=== PATIENT | male | born 1985 | race Hispanic/Latino ===

== ENCOUNTER → 2022-05-24 | Outpatient (CLI) | payer OTHER ==
[2022-05-24 12:24] LABS: BASOPHILS % (AUTO) 0.6 % (0.0-5.0); EOSINOPHILS % (AUTO) 1.9 % (0.0-8.0); LYMPHOCYTES % (AUTO) 31.3 % (21.0-51.0); MEAN CORPUSCULAR HEMOGLOBIN 27.6 pg (27.0-33.0); MEAN CORPUSCULAR HGB CONC 33.7 g/dL (32.0-36.0); NEUTROPHILS % (AUTO) 57.7 % (40.0-77.0); PLATELET COUNT (AUTO) 271 K/uL (130-400); RED BLOOD CELL COUNT(AUTO) 6.34 MIL/uL (4.50-6.20); RED CELL DISTRIBUTION WIDTH 14.6 % (11.0-15.5); WHITE BLOOD COUNT (AUTO) 6.2 K/uL (4.8-10.8)
[2022-05-24 12:37] LABS: HEMOGLOBIN A1C 5.6 % (4.0-6.0)
[2022-05-24 12:49] LABS: ALBUMIN 4.1 g/dL (3.5-5.0); CREATININE 1.2 mg/dL (0.5-1.5); MAGNESIUM 2.2 mg/dL (1.80-2.40); POTASSIUM 4.2 mmol/L (3.5-5.1); THYROID STIMULATING HORMONE 1.92 uIU/mL (0.36-3.74); TOTAL PROTEIN, SERUM 7.7 g/dL (6.0-8.3)
== END | disposition home or self-care (01) ==
LOC: LAB 09:04
PROVIDERS: ATTEND Student in an Organized Health Care Education/Training Program
DX: R00.2 Palpitations (principal)
CPT/HCPCS: 36415; 80053; 80061; 83036; 83735; 84443; 85025

== ENCOUNTER → 2022-06-06 | Outpatient (CLI) | payer OTHER | END | disposition home or self-care (01) | LOC: SHCH 11:05 | PROVIDERS: ATTEND Student in an Organized Health Care Education/Training Program | DX: R00.2 Palpitations (principal); I10 Essential (primary) hypertension; R56.9 Unspecified convulsions | CPT/HCPCS: 93306 ==

== ENCOUNTER 2024-08-04 20:16 | Emergency (ER) | payer OTHER ==
[~2024-08-04] VITALS: Ht 167.6 cm; Wt 122.5 kg
[2024-08-04 20:30] VITALS: TEMP 99
[2024-08-04] MEDS ORDERED: METO25TA6 PO (20:39)
[2024-08-04] MEDS ORDERED: SPIR1TAB4 PO (20:39)
[2024-08-04] MEDS ORDERED: AMLO-257 PO (20:39)
[2024-08-04] MEDS ORDERED: ASPI-1005 PO (20:39)
[2024-08-04] MEDS ORDERED: LAMO25TA9 PO (20:39)
--- NOTE | 2024-08-04 20:52 | ERN ---
ED Note History of Present Illness Stated Complaint: C/O POSSIBLE SEIZURE Chief Complaint: Seizure Time Seen by MD: 20:45 Dictation: HPI: 39-year-old male past medical history of hypertension, seizure disorder, cholecystectomy presented to ED with complaints of seizure-like movement 2 hours back. Patient was walking when he developed jerking movement of his neck on right side which lasted for few minutes. As per the bystander , there was a brief moment of ?apnea vs LOC . He states that he had posterior headache and loss of balance at that time. No associated fall, head trauma, fever, nausea, projectile vomiting, vision changes reported. As per the mother patient had the last seizure episode 2 years back and he is compliant with his seizure medications, lamotrigine 50 mg b.i.d.. Patient denies any stressors, noncompliance to medications, smoking, alcoholism or any other recreational drug abuse. He is in no acute cardiopulmonary distress Allergies: Coded Allergies: No Known Allergies (Unverified Allergy, Unknown, 08/04/24) Home Meds Reported Medications Spironolact/Hydrochlorothiazid (Spironolactone-Hctz 25-25 Tab) 25 Mg-25 Mg Tablet, 1 TAB PO DAILY for 30 Days, #30 TAB 0 Refills 08/04/24 Amlodipine Besylate (Amlodipine Besylate) 5 Mg Tablet, 5 MG PO BID, TAB 08/04/24 Aspirin (ASPIRIN 81MG CHEW TAB) 81 Mg Tab.chew, 1 TAB PO DAILY for 30 Days, #30 TAB 0 Refills 08/04/24 Metoprolol Tartrate (Metoprolol Tartrate) 25 Mg Tablet, 1 TAB PO BID for 30 Days, #60 TAB 0 Refills 08/04/24 Lamotrigine (Lamotrigine) 25 Mg Tablet, 2 TAB PO BID for 30 Days, #60 TAB 0 Refills 08/04/24 Past Medical History Past Medical History: Hypertension, Seizure Surgical History: Cholecystectomy Review of System Dictation REVIEW OF SYSTEMS CONSTITUTIONAL: Denies fevers, chills, or night sweats. No unintentional weight loss reported. ENT: No hearing loss, otalgia, otorrhea, rhinitis, rhinorrhea, hoarseness, or sore throat. CARDIOVASCULAR: Denies any exertional angina, dyspnea on exertion, orthopnea, paroxysmal nocturnal dyspnea, palpitations claudication. PULMONARY: Denies any shortness of breath, cough, phlegm / sputum, hemoptysis, pleuritic chest pain. SLEEP: Denies morning headaches, daytime somnolence or napping. Denies difficulty falling asleep, staying asleep, waking from sleep. Denies knowledge of snoring. GASTROINTESTINAL: Denies any type of dysphagia to either liquids or solids. Denies nausea, vomiting, abdominal pain, diarrhea, constipation, blood in stools . NEUROLOGICAL: Denies headache, motor weakness, sensory deficit, vertigo / spinning sensation, gait abnormalities, or tremors. GENITOURINARY: Denies frequency, urgency, nocturia, hematuria or incontinence, low urinary stream, straining to void, urinary intermittency or hesitancy ENDOCRINOLOGY: Denies polyuria, polydipsia, polyphagia or heat / cold intolerance. HEMATOLOGY: Denies thrombophilia / previous clots, or coagulopathy / bleeding disorders. ONCOLOGIC: Denies personal history of malignancy. DERMATOLOGIC: Denies rashes or pruritus. PSYCHIATRIC: Denies any suicidal or homicidal ideation. Denies hallucinations. Initial Vital Sign VS Vital Signs Date Time Temp Pulse Resp B/P (MAP) Pulse Ox O2 Delivery O2 Flow Rate FiO2 08/04/24 20:22 97.7 97 20 141/100 100 Room Air 08/04/24 20:30 0 21 Physical Exam Dictation PHYSICAL EXAM GENERAL APPEARANCE: Morbidly obese male . Awake and alert. Oriented to time, place and person. No acute cardiopulmonary distress. HEENT: Head normocephalic , atraumatic. Sclera anicteric . Pupils are round and reactive. Extraocular movements intact . No conjunctival injection. No nasal congestion. No throat congestion .Oral mucosa moist. NECK: Supple. No JVD. No thyromegaly. No submental, submandibular, pre- /postauricular, occipital or supraclavicular lymphadenopathy. No carotid bruits. CHEST: Normal chest expansion. No Telemetry. LUNGS: Clear to auscultation bilaterally . No rales, rhonchi or any wheezing. Equal tactile fremitus. Resonant to percussion . CARDIOVASCULAR: Regular rate and rhythm. S1 and S2 normal. No rubs, murmurs or gallops. ABDOMEN: Soft, nontender, and nondistended. There is no rebound tenderness, voluntary guarding, or rigidity. No hepatosplenomegaly. Bowel sounds normal in all four quadrants . NEUROLOGICAL: Cranial nerves II-XII grossly intact. Motor is 5/5 in bilateral upper and lower extremities . No sensory deficits. EXTREMITIES: No edema, No cyanosis , No clubbing. Good capillary refill. SKIN: No skin breakdown. No rashes or lesions . PSYCHIATRY: Normal affect .No auditory or visual hallucinations. Normal speech. No dysarthria. Results (Laboratory/Radiology) Laboratory/Radiology Laboratory Tests Test 08/04/24 20:35 08/04/24 21:33 08/04/24 21:59 08/04/24 23:18 Prothrombin Time 10.9 SEC (9.6-11.6) Prothromb Time International Ratio 1.01 (0.85-1.15) Activated Partial Thromboplast Time 24.2 SEC (26.3-35.5) L Sodium Level 134 mmol/L (136-145) L Potassium Level 3.3 mmol/L (3.5-5.1) L Chloride Level 97 mmol/L (101-111) L Carbon Dioxide Level 28 mmol/L (21-32) Blood Urea Nitrogen 13 mg/dL (7-18) Creatinine 1.1 mg/dL (0.5-1.3) Glomerular Filtration Rate Calc 86 mL/min (>90) Random Glucose 113 mg/dL (70-105) H Total Calcium 9.3 mg/dL (8.5-10.1) Total Creatine Kinase 348 U/L (21-232) H White Blood Count 13.7 K/uL (4.8-10.8) H Red Blood Count 5.79 MIL/uL (4.50-6.20) Hemoglobin 16.5 g/dL (14.0-18.0) Hematocrit 47.5 % (42-54) Mean Corpuscular Volume 82.0 fL (79-99) Mean Corpuscular Hemoglobin 28.5 pg (27.0-33.0) Mean Corpuscular Hemoglobin Concent 34.7 g/dL (32.0-36.0) Red Cell Distribution Width 13.9 % (11.0-15.5) Platelet Count 266 K/uL (130-400) Mean Platelet Volume 8.6 fL (7.5-10.5) Immature Granulocyte % (Auto) 0.6 % (0-1) Neutrophils (%) (Auto) 81.5 % (40.0-77.0) H Lymphocytes (%) (Auto) 11.2 % (21.0-51.0) L Monocytes (%) (Auto) 6.3 % (3.0-13.0) Eosinophils (%) (Auto) 0.1 % (0.0-8.0) Basophils (%) (Auto) 0.3 % (0.0-5.0) Neutrophils # (Auto) 11.2 K/uL (1.8-7.7) H Lymphocytes # (Auto) 1.5 K/uL (1.0-4.8) Monocytes # (Auto) 0.9 K/uL (0.1-1.0) Eosinophils # (Auto) 0.02 K/uL (0.00-0.70) Basophils # (Auto) 0.04 K/uL (0.00-0.20) Absolute Immature Granulocyte (auto 0.08 K/uL (0-1) Nucleated Red Blood Cells 0.0 % (0.0-0.19) Troponin I High Sensitivity 12 ng/L (4-75) 15 ng/L (4-75) Urine Color COLORLESS (YELLOW) Urine Appearance CLEAR (CLEAR) Urine pH 6.0 (5.0-8.0) Urine Specific [place] 1.010 (1.001-1.031) Urine Protein NEGATIVE mg/dL (NEGATIVE) Urine Glucose (UA) NEGATIVE mg/dL (NEGATIVE) Urine Ketones NEGATIVE mg/dL (NEGATIVE) Urine Occult Blood NEGATIVE (NEGATIVE) Urine Nitrate NEGATIVE (NEGATIVE) Urine Bilirubin NEGATIVE mg/dL (NEGATIVE) Urine Urobilinogen 0.2 mg/dL (0.2-1.0) Urine Leukocyte Esterase NEGATIVE Jody/uL Urine Opiates Screen NEGATIVE (NEGATIVE) Urine Barbiturates Screen NEGATIVE (NEGATIVE) Urine Phencyclidine Screen NEGATIVE (NEGATIVE) Urine Amphetamines Screen NEGATIVE (NEGATIVE) Urine Benzodiazepines Screen NEGATIVE (NEGATIVE) Urine Cocaine Screen NEGATIVE (NEGATIVE) Urine Marijuana (THC) Screen NEGATIVE (NEGATIVE) EKG Comment: ECG, 08.04.24, 8:47 PM NORMAL SINUS RHYTHM VENTRICULAR RATE AT 88 BEATS PER MIN AK 159, QTc [address] ELEVATION ED Course ED Course Orders Procedure Category Date Status Time Basic Metabolic Panel LAB 08/04/24 Complete 20:31 Pt And Ptt LAB 08/04/24 Complete 20:31 Urinalysis Profile LAB 08/04/24 Complete 20:31 Drug Screen Urine LAB 08/04/24 Complete 20:31 Iv Insertion CPOE 08/04/24 Transmitted 20:31 12 Lead Ekg Tracing- EKG 08/04/24 Logged Technical 20:39 Troponin I High LAB 08/04/24 Complete Sensitivity 20:39 Creatine Kinase, Total LAB 08/04/24 Complete 20:39 Lamotrigine LAB 08/04/24 In Process (Lamictal) Level 20:39 Levetiracetam 500 PHA 08/04/24 Complete Mg/5 Ml Sd V (Keppra 5 21:00 Seizure Precautions CPOE 08/04/24 Transmitted 20:51 Ct Head/Brain W/O CT 08/04/24 Resulted Contrast 20:51 Cbc With Differential LAB 08/04/24 Complete 20:54 0.9%Nacl 1000ml (Ns PHA 08/04/24 In Process 1000ml) 22:00 Potassium Chloride PHA 08/04/24 Complete 20meq Er (K-Dur/Klor- 22:00 Troponin I High LAB 08/04/24 Complete Sensitivity 22:59 Nitroglycerin 1gm PHA 08/04/24 Complete Oint (Nitroglycerin 1g 23:00 Nicardipine 25mg Inj PHA 08/05/24 Complete (Cardene 25mg Inj) 00:00 [place] Prov. Neuro CONPHYSVC 08/04/24 Transmitted Consult 23:34 Current Medications Medications (Trade) Dose Ordered Sig/Cecilia Route PRN Reason Start Time Stop Time Status Last Admin Dose Admin Levetiracetam 1000 mg/Sodium Chloride 100 ml @ 400 mls/hr ONCE ONCE IV 08/04/24 21:00 08/04/24 21:14 DC 08/04/24 20:53 Nicardipine HCl 50 mg/Sodium Chloride 250 ml @ 0 mls/hr PROTOCOL ONCE IV 08/05/24 00:00 08/05/24 00:01 DC 08/05/24 00:11 Nitroglycerin (Nitroglycerin 1gm Oint) 1 inch ONCE ONCE TD 08/04/24 23:00 08/04/24 23:03 DC 08/04/24 23:10 Potassium Chloride (K-Dur/Klor-Con 20meq) 40 meq ONCE ONCE PO 08/04/24 22:00 08/04/24 22:01 DC 08/04/24 21:56 Sodium Chloride 1,000 ml @ 150 mls/hr Q6H40M ONCE IV 08/04/24 22:00 08/05/24 04:39 08/04/24 21:55 Vital Signs Date Time Temp Pulse Resp B/P (MAP) Pulse Ox O2 Delivery O2 Flow Rate FiO2 08/05/24 00:32 95 17 131/79 96 Room Air* 0 21 08/05/24 00:11 96 182/107 08/04/24 23:44 86 18 179/113 96 Room Air* 0 21 08/04/24 20:30 99.0 91 22 143/98 98 Room Air* 0 21 08/04/24 20:22 97.7 97 20 141/100 100 Room Air Medical Decision Making MDM Differential diagnosis : Breakthrough seizure, stroke Rationale: Tests considered and ordered secondary to shared decision making include: I will re-evaluate the patient after treatment and diagnostic exams have returned to determine whether they require further testing, can be safely discharged home, or need admission for further treatment and evaluation. Given the social determinants of health affecting care, including literacy, access to medical care, prescription drug management, and dgdm-dlt-jagvdwl drugs, I will ensure that treatment plans are tailored accordingly. There are no social concerns with this patient. Risk of complication and/or morbidity or mortality of patient management: None Need for hospitalization: Patient does not meet criteria for hospitalization. Need for emergency major/minor surgery: No Prescription drug management Prescriptions will include symptomatic care Medications-Per medication reconciliation Previous outside records reviewed: Old ER visits. Patient's prior external medical records from other ER visits were reviewed by me as indicated. Prior testing and results from previous visits were reviewed. Prior tests were taken into account with medical decision making and resource utilization, independent historian/historians were used to obtain complete medical history. I independently interpreted the test that were performed, results were reviewed by me and considered findings on radiology. Medical management and examination interpretation discussions was done by me with other qualified healthcare professionals as indicated for the patient's care. Revaluation: CT head showed no acute findings . Patient stated that he is experiencing generalized body pain and rt lower extremiry cramps. Labs showed wbc at 13k, mild hypokalemia and elevated CK. IV NS and potassium suppl ementation was given. 11 pm : He started complaining of chest pain,. His BP is elevated at 179/117 mm of Hg. Initial troponin was 12. Will repeat tropnin level\ 11:30 pm : Started on IV Cardene drip. Teleneurology consult placed . Disposition : Patient will be transferred to [facility] for Neurology evaluation Stroke Patient?: No Is Patient Candidate for t-PA?: No Did the Patient Receive t-PA?: No Contraindication for t-PA?: Medical Contraindication NIH STROKE SCALE: NIH STROKE SCALE Response (Comments) Value Level of Consciousness Alert 0 Ask patient month and their age Answers both correct 0 Command to open eyes, make fist and let go Obeys both correct 0 Best gaze (horizontal eye movement) Normal 0 Visual Field Testing No Visual Field Loss 0 Facial Paresis Normal / Symmetrical 0 Motor Function - Left Arm Normal 0 Motor Function - Right Arm Normal 0 Motor Function - Left Leg Some effort against grav. 2 Motor Function - Right Leg Some effort against grav. 2 Limb Ataxia No Ataxia 0 Sensory-pin prick to arms, legs, trunk and face Normal 0 Best Language (describe picture, name items and read) No Aphasia 0 Dysarthria (read several words) Normal Articulation 0 Extinction and Inattention Normal 0 Total 4 DX & DISP Disposition: Transfer Departure Impression: Primary Impression: Breakthrough seizure Condition: Stable Referrals: SELF,REFERRAL (PCP) AARON CUEVA MD Aug 04, 2024 20:52 SONG ROSE MD Aug 05, 2024 00:48
[2024-08-04] MEDS: leveTIRACEtam 500 MG/5 ML SD V 1,000 MG in 0.9%NACL 100ML 100 ML IV ONE (20:53)
[2024-08-04 20:54] LABS: CREATININE 1.1 mg/dL (0.5-1.3); POTASSIUM 3.3 mmol/L (3.5-5.1)
--- NOTE | 2024-08-04 20:57 | NUR ---
PATIENT TRANSPORTED TO CT
[2024-08-04 21:07] LABS: INR 1.01 (0.85-1.15); PROTHROMBIN TIME 10.9 SEC (9.6-11.6)
[2024-08-04 21:08] LABS: PARTIAL THROMBOPLASTIN TIME 24.2 SEC (26.3-35.5)
--- NOTE | 2024-08-04 21:35 | HMCIMG ---
CT HEAD/BRAIN W/O CONTRAST CLINICAL HISTORY: breakthrough seizure, posterior headache COMPARISON: None TECHNIQUE: Multiple sequential axial images of the head were obtained from the base of the skull through vertex. CT was performed with one or more of the following dose reduction techniques: automated exposure control, adjustment of the mA and/or kV according to patient size, or use of iterative reconstruction technique FINDINGS: There is mild atrophy and small vessel disease. The orbital contents, paranasal sinuses and mastoid air cells are within normal limits. The calvarium is intact. IMPRESSION: There are no acute findings.
[2024-08-04 21:39] LABS: BASOPHILS # (AUTO) 0.04 K/uL (0.00-0.20); BASOPHILS % (AUTO) 0.3 % (0.0-5.0); EOSINOPHILS # (AUTO) 0.02 K/uL (0.00-0.70); EOSINOPHILS % (AUTO) 0.1 % (0.0-8.0); HEMATOCRIT 47.5 % (42-54); IMMATURE GRANULOCYTE ABSOLUTE 0.08 K/uL (0-1); LYMPHOCYTES # (AUTO) 1.5 K/uL (1.0-4.8); LYMPHOCYTES % (AUTO) 11.2 % (21.0-51.0); MEAN CORPUSCULAR HEMOGLOBIN 28.5 pg (27.0-33.0); MEAN CORPUSCULAR HGB CONC 34.7 g/dL (32.0-36.0); MONOCYTES # (AUTO) 0.9 K/uL (0.1-1.0); MONOCYTES % (AUTO) 6.3 % (3.0-13.0); NEUTROPHILS # (AUTO) 11.2 K/uL (1.8-7.7); NEUTROPHILS % (AUTO) 81.5 % (40.0-77.0); PLATELET COUNT (AUTO) 266 K/uL (130-400); RED BLOOD CELL COUNT(AUTO) 5.79 MIL/uL (4.50-6.20); RED CELL DISTRIBUTION WIDTH 13.9 % (11.0-15.5); WHITE BLOOD COUNT (AUTO) 13.7 K/uL (4.8-10.8)
[2024-08-04] MEDS: 0.9%NACL 1000ML 1,000 ML IV ONE (21:55)
[2024-08-04] MEDS: PoTASSium chloRIDE 20MEQ ER 20 MEQ ERTAB PO ONE (21:56)
[2024-08-04 22:10] LABS: APPEARANCE,URINE CLEAR (CLEAR); BILIRUBIN,URINE NEGATIVE (NEGATIVE); COLOR,URINE COLORLESS (YELLOW); GLUCOSE, URINE (UA) NEGATIVE (NEGATIVE); KETONES,URINE NEGATIVE (NEGATIVE); LEUKOCYTE ESTERASE ,URINE NEGATIVE Leu/uL (NEGATIVE); NITRATE,URINE NEGATIVE (NEGATIVE); OCCULT BLOOD,URINE NEGATIVE (NEGATIVE); PROTEIN,URINE NEGATIVE (NEGATIVE); UROBILINOGEN,URINE 0.2 mg/dL (0.2-1.0)
[2024-08-04 22:15] LABS: ADD UA MICROSCOPIC NO; AMPHET/METH SCREEN,URINE NEGATIVE (NEGATIVE); BARBITURATE SCREEN, URINE NEGATIVE (NEGATIVE); BENZODIAZEPINES SCREEN,URINE NEGATIVE (NEGATIVE); CANNABINOID SCREEN,URINE NEGATIVE (NEGATIVE); COCAINE SCREEN,URINE NEGATIVE (NEGATIVE); OPIATE SCREEN,URINE NEGATIVE (NEGATIVE); PHENCYCLIDINE SCREEN,URINE NEGATIVE (NEGATIVE)
[2024-08-04] MEDS: NITROGLYCERIN 1GM OINT 1 INCH/1GM TD ONE (23:10)
[2024-08-05] MEDS: niCARDIpine 25MG INJ 50 MG in 0.9% NACL 250ML 230 ML IV ONE (00:11)
--- NOTE | 2024-08-05 00:23 | NUR ---
TRANSFER CALL PLACED TO [facility] TO INITIATE TRANSFER FOR NEUROLOGY SERVICES
[2024-08-05 01:09] VITALS: BP 123/78; PULSE 98; RESP 17; O2SAT 98
--- NOTE | 2024-08-05 01:10 | NUR ---
TRANSFER PT. WAS ACCEPTED BY PRASANTH HURLEY MD @ 0046 FOR TRANSFER TO [facility] [place]. ROOM ASSIGNMENT AT THIS TIME IS 1328. REPORT: [phone]
--- NOTE | 2024-08-05 01:33 | NUR ---
[facility] CALLED FOR TRANSPORT OF MONITORED NEURO ICU PT.
--- NOTE | 2024-08-05 02:09 | NUR ---
REPORT CALLED TO AMANDA LALA AT [facility]
--- NOTE | 2024-08-05 06:52 | EKG ---
[facility] Test Date: 2024-08-04 Test Time: 20:47:06 Pat Name: ERNIE GALAVIZ Department: [facility] Room: Gender: Domestic Travel Consultant: [id number] : 1985 Requested By: AARON CUEVA Order Number: [id number] Reading MD: Benson Pardo Measurements Intervals Hatch Rate: 88 P: 36 DE: 159 QRS: 46 QRSD: 81 T: 3 QT: 377 QTc: 456 Interpretive Statements Sinus rhythm No previous ECG available for comparison Electronically Signed On 08-06-2024 18:33:33 LUNG SPLITTER by Benson Pardo Please click the below link to view image of tracing.
== END 2024-08-05 02:20 | disposition short-term general hospital (02) ==
LOC: EDH 20:16
DX: G40.909 Epilepsy, unspecified, not intractable, without status epilepticus (principal); I10 Essential (primary) hypertension; Z79.82 Long term (current) use of aspirin; Z90.49 Acquired absence of other specified parts of digestive tract
CPT/HCPCS: 99285; 96374; 70450; 82550; 84484 ×2; 80048; 80305; 85025; 85610; 85730; 36415; 93005; 81003; 82542; 96375; J1953; J7030; J3490; J7050

== ENCOUNTER 2024-10-26 14:23 | Emergency (ER) | payer OTHER ==
[~2024-10-26] VITALS: Ht 167.6 cm; Wt 126.6 kg
[~2024-10-26 14:23] MED LIST: AMLO-257 PO; ASPI-1005 PO; LAMO25TA9 PO; METO25TA6 PO; SPIR1TAB4 PO
--- NOTE | 2024-10-26 15:16 | ERN ---
ED Note History of Present Illness Stated Complaint: LEFT THUMB LACERATION Chief Complaint: Laceration/Avulsion Time Seen by MD: 14:25 Dictation: 39-year-old male presents to the ED for evaluation of left thumb laceration onset RN HOME CARE. Patient reports he accidentally hit his thumb with a hammer, but denies any other associated symptoms at this time. Allergies: Coded Allergies: No Known Allergies (Unverified Allergy, Unknown, 08/04/24) Home Meds Active Scripts Cephalexin Monohydrate (Keflex) 500 Mg Cap, 500 MG PO BID for 7 Days, #14 CAP Prov:TENISHA BANERJEE MD 10/26/24 Reported Medications Spironolact/Hydrochlorothiazid (Spironolactone-Hctz 25-25 Tab) 25 Mg-25 Mg Tablet, 1 TAB PO DAILY for 30 Days, #30 TAB 0 Refills 08/04/24 Amlodipine Besylate (Amlodipine Besylate) 5 Mg Tablet, 5 MG PO BID, TAB 08/04/24 Aspirin (ASPIRIN 81MG CHEW TAB) 81 Mg Tab.chew, 1 TAB PO DAILY for 30 Days, #30 TAB 0 Refills 08/04/24 Metoprolol Tartrate (Metoprolol Tartrate) 25 Mg Tablet, 1 TAB PO BID for 30 Days, #60 TAB 0 Refills 08/04/24 Lamotrigine (Lamotrigine) 25 Mg Tablet, 2 TAB PO BID for 30 Days, #60 TAB 0 Refills 08/04/24 Past Medical History Past Medical History: Hypertension, Seizure Surgical History: Cholecystectomy Review of System Dictation Constitutional: Negative for fever,chills, and weight loss Eyes: Negative for injury, pain,redness, and discharge ENT: Negative for injury,pain or swelling Cardiovascular: Negative for chest pain, palpitations, and edema Respiratory: Negative for shortness of breath, cough, and wheezing, Abdomen/GI: Negative for abdominal pain, nausea, vomiting, diarrhea, and constipation Back: Negative for injury and pain : Negative for injury, bleeding and discharge MS/Extremity: Positive for finger injury Negative for deformity Skin: Negative for rash, and discoloration Neuro: Negative for headache, weakness, numbness, tingling, and seizure Psych: Negative for suicide ideation, homicidal ideation, and hallucinations Initial Vital Sign VS Vital Signs Date Time Temp Pulse Resp B/P (MAP) Pulse Ox O2 Delivery O2 Flow Rate FiO2 10/26/24 14:27 98.4 80 16 146/103 97 Room Air 0 10/26/24 16:55 21 Physical Exam Dictation General: awake, alert, NAD Head/Face: Normocephalic, atraumatic Eyes: PERRL, EOMI, vision at baseline ENT: oral cavity clear, TMs clear, no signs of infection Neck: Trachea midline, supple, no nuchal rigidity Cardiovascular: RRR, normal S1/S2, No MRGs, no JVD Respiratory: CTAB, no respiratory distress, No rales or wheezes Abdomen: Soft, non-tender, non-distended, normal bowel sounds, no guarding or rebound. Skin: Warm, dry, normal turgor, no rash MS/Extremity: Pulses equal, no cyanosis, neurovascular intact, left thumb skin break, crush injury, no obvious deformities noted Neuro: COAx4, GCS 15, strength 5/5, CN 2-12 intact, normal cerebellar exam, normal gait, Psych: Normal behavior, mood, and affect normal Results (Laboratory/Radiology) X-RAY Comment: REASON: injury ORDERING PHYSICIAN: TENISHA BANERJEE MD PROCEDURE: HAND 3V LT - HAND 3+VWS LT HAND 3+VWS LT REASON: injury TECHNIQUE: 3 views were obtained. FINDINGS: There is no evidence of fracture or dislocation. There is no joint effusion. The soft tissues appear unremarkable. There is no evidence of a radiopaque foreign body. IMPRESSION: No acute findings. DICTATED BY: DONTAE ZAPIEN MD DATE: 10/26/24 1609 ED Course ED Course Orders Procedure Category Date Status Time Hand 3+Vws Lt RAD 10/26/24 Resulted 15:28 Diph,Pertuss(Acell),Tet PHA 10/26/24 Complete Vac/Pf (Tdap) 15:30 Hydrocodone/Apap PHA 10/26/24 Complete 10/325 Tab ([place] 10) 15:30 *Nursing CPOE 10/26/24 Transmitted Communication: 16:52 Current Medications Medications (Trade) Dose Ordered Sig/Cecilia Route PRN Reason Start Time Stop Time Status Last Admin Dose Admin Acetaminophen/ Hydrocodone Bitart (NORco 10) 1 tab ONCE ONCE PO 10/26/24 15:30 10/26/24 15:32 DC 10/26/24 16:25 Diphtheria/ Tetanus/Acell Pertussis (Tdap) 0.5 ml ONCE ONCE IM 10/26/24 15:30 10/26/24 15:32 DC 10/26/24 16:22 Vital Signs Date Time Temp Pulse Resp B/P (MAP) Pulse Ox O2 Delivery O2 Flow Rate FiO2 10/26/24 16:55 98.4 78 16 132/78 97 Room Air* 0 21 10/26/24 14:27 98.4 80 16 146/103 97 Room Air 0 Medical Decision Making MDM MDM: Differential diagnosis: Finger injury, finger laceration Risk of complication and/or morbidity or mortality of patient management: None Medications-Per medication reconciliation Need for hospitalization: Patient does not meet criteria for hospitalization. Need for emergency major/minor surgery: No There are no social concerns with this patient. Prescription drug management Prescriptions will include symptomatic care I independently interpreted the test that were performed, results were reviewed by me and considered findings on radiology if ordered. Medical management and examination interpretation discussions were had by me with other qualified healthcare professionals as indicated for the patient's care. DX & DISP Disposition: Discharge Departure Impression: Primary Impression: Laceration of left thumb Condition: Stable Scripts Cephalexin Monohydrate (Keflex) 500 Mg Cap 500 MG PO BID for 7 Days, #14 CAP Prov: TENISHA BANERJEE MD 10/26/24 Referrals: NONE (PCP) TENISHA BANERJEE MD Oct 26, 2024 15:16
--- NOTE | 2024-10-26 16:13 | HMCIMG ---
HAND 3+VWS LT REASON: injury TECHNIQUE: 3 views were obtained. FINDINGS: There is no evidence of fracture or dislocation. There is no joint effusion. The soft tissues appear unremarkable. There is no evidence of a radiopaque foreign body. IMPRESSION: No acute findings.
[2024-10-26] MEDS: DIPH,PERTUSS(ACELL),TET VAC/PF 0.5 ML VIAL IM ONE (16:22)
[2024-10-26] MEDS: HYDROcodone/acetaMINOPHEN 10/325 MG TAB PO ONE (16:25)
[2024-10-26 16:55] VITALS: BP 132/78; PULSE 78; RESP 16; TEMP 98.4; O2SAT 97
--- NOTE | 2024-10-26 17:07 | NUR ---
LT THUMB WOUND CLEANED, STERI STEPS PLACED ON LT THUMB, PT TOLERATED WELL
[2024-10-26] MEDS ORDERED: CEPH500B PO (17:29)
== END 2024-10-26 17:50 | disposition home or self-care (01) ==
LOC: EDH 14:23
DX: S61.012A Laceration without foreign body of left thumb without damage to nail, initial encounter (principal); I10 Essential (primary) hypertension; Z79.82 Long term (current) use of aspirin; Z79.899 Other long term (current) drug therapy; Z90.49 Acquired absence of other specified parts of digestive tract; W22.8XXA Striking against or struck by other objects, initial encounter; Y93.89 Activity, other specified; Y92.89 Other specified places as the place of occurrence of the external cause; Y99.8 Other external cause status
CPT/HCPCS: 73130; 90471; 90715; 99283